=== PATIENT | female | born 1995 | race Caucasian/White ===

== ENCOUNTER 2021-07-25 13:22 | Emergency (ER) | payer OTHER ==
[2021-07-25 15:22] LABS: HIV (1/2) Antibody/Antigen Non-Reactive (NonReactive); HIV 1/2 INDEX 0.08 S/CO (<1.00)
[2021-07-25 22:16] LABS: Hep C IgG Ab Non-Reactive (NonReactive); Hep C Index 0.07 S/CO (0-0.79)
[2021-07-25 22:17] LABS: Hep B Surf AB Reactive (NonReactive)
== END 2021-07-25 15:00 | disposition home or self-care (01) ==
LOC: CSHERS 13:22
DX: Z77.21 Contact with and (suspected) exposure to potentially hazardous body fluids (principal)
CPT/HCPCS: 36415; 86706; 86803; 87389; 99282